=== PATIENT | male | born 1930 | race Asian ===

== ENCOUNTER 2017-01-22 10:28 | Inpatient (IN) | payer MEDICAID, MEDICARE ==
[~2017-01-22] VITALS: Ht 165.1 cm; Wt 81.7 kg
[~2017-01-22 10:28] MED LIST: ALLOPURINOL100 MG PO; ARICEPT5 MG PO; ARTIFICIAL TEAR15 M2 OP; BACLOFEN10 MG PO; BACO TOP; CALCIUM-VIT D PO; CARAFATE1 GM PO; CARDURA8 MG PO; CLARITIN10 MG PO; CLINDAMYCIN300 M1 PO; COLACE100 MG PO; DIOVAN80 MG PO; DULCOLAX10 MG RC; HEP5I SC; HIBICLENS118 ML TOP; IBUPROFEN400 MG PO; IPRATROPIUM BROM3 M2 INH; LAC PO; LEV500PM IV; LYRICA50 M1 PO; MILK OF MA1200 MG/11 PO; NEURONTIN600 MG PO; PEPCID20 MG PO; PLA75 PO; SER25 PO; TYLENOL EXTRA500 M2 PO; ULTRACET1 TAB PO; VITAMIN C500 MG PO
[2017-01-22] MEDS ORDERED: PLA75 PO (10:52)
[2017-01-22] MEDS ORDERED: MUCINEX600 MG PO (10:58)
[2017-01-22] MEDS ORDERED: MOM PO (11:02)
[2017-01-22] MEDS ORDERED: AZITHROMYCIN250 M1 PO (11:10)
[2017-01-22] MEDS ORDERED: DULCOLAX10 M1 RC (11:11)
[2017-01-22] MEDS ORDERED: FLONS (11:12)
[2017-01-22 11:14] LABS: BASOPHIL % 0.1 % (0-2); PLATELET COUNT 191 x10^3mcL (130-400); RED CELL DISTRIBUTION WIDTH 14.3 % (11.5-14.5)
[2017-01-22] MEDS ORDERED: LATANOPROST2.5 ML OU (11:14)
[2017-01-22] MEDS ORDERED: ULTRACET TABLE1 EACH PO (11:14)
[2017-01-22] MEDS ORDERED: ZOC10 PO (11:15)
[2017-01-22] MEDS ORDERED: ALPHAGAN P5 M1 OS (11:16)
[2017-01-22] MEDS ORDERED: PROVENTIL0.09 MG/A1 IH (11:18)
[2017-01-22] MEDS ORDERED: ATRNS6 (11:19)
[2017-01-22] MEDS ORDERED: ARTIFICAL TEARS OU (11:20)
[2017-01-22] MEDS ORDERED: MYVITALIFE1 EACH PO (11:21)
[2017-01-22 11:54] LABS: ALBUMIN 2.8 g/dL (3.4-5.0); ALKALINE PHOSPHATASE 74 U/L (46-116); ALT/SGPT 11 U/L (16-63); BILIRUBIN TOTAL 0.71 mg/dL (0.20-1.00); CARBON DIOXIDE 22.8 mmol/L (21-32); CHLORIDE SERUM 104 mmol/L (98-107); CREATININE SERUM 2.9 mg/dL (0.7-1.3); GLUCOSE SERUM 130 mg/dL (74-106); POTASSIUM SERUM 4.1 mmol/L (3.5-5.1); SODIUM SERUM 138 mmol/L (136-145); TOTAL PROTEIN, SERUM 6.8 g/dL (6.4-8.2)
[2017-01-22 11:55] LABS: CHOLESTEROL 90 mg/dL (<200)
[2017-01-22 12:03] LABS: AST/SGOT 16 U/L (15-37)
[2017-01-22 12:34] LABS: FREE T4 1.16 ng/dL (0.76-1.46); FREE THYROXINE INDEX 2.2 ug/dL (1.4-4.5); T4(THYROXINE) 5.8 ug/dL (4.7-13.3)
[2017-01-22 12:38] LABS: T3 TOTAL 0.4 ng/mL
[2017-01-22 12:57] LABS: microscopic required? YES; urine erythrocyte NEGATIVE (NEGATIVE)
[2017-01-22 13:26] VITALS: BP 112/61
[2017-01-22 13:38] LABS: MAGNESIUM 2.1 mg/dL (1.8-2.4); PHOSPHOROUS 3.9 mg/dL (2.5-4.9)
[2017-01-22 13:40] LABS: CHOLESTEROL/HDL RATIO 3.5
[2017-01-22 18:02] VITALS: BP 119/52
[2017-01-22 21:17] VITALS: BP 125/68
[2017-01-23 05:44] VITALS: BP 153/69
[2017-01-23 06:24] LABS: CALCIUM 7.6 mg/dL (8.5-10.1); CARBON DIOXIDE 22.3 mmol/L (21-32); CHLORIDE SERUM 111 mmol/L (98-107); CREATININE SERUM 2.1 mg/dL (0.7-1.3); GLUCOSE SERUM 97 mg/dL (74-106); MAGNESIUM 2.1 mg/dL (1.8-2.4); PHOSPHOROUS 3.3 mg/dL (2.5-4.9); POTASSIUM SERUM 4.1 mmol/L (3.5-5.1); SODIUM SERUM 143 mmol/L (136-145)
[2017-01-23 06:51] LABS: BASOPHIL % 0.5 % (0-2); PLATELET COUNT 168 x10^3mcL (130-400); RED CELL DISTRIBUTION WIDTH 14.6 % (11.5-14.5)
[2017-01-23 09:18] VITALS: BP 179/86
[2017-01-23 14:06] VITALS: BP 141/68
[2017-01-23 18:24] VITALS: BP 130/57
[2017-01-23 20:00] VITALS: BP 116/52
[2017-01-23 22:06] VITALS: BP 115/51
[2017-01-24] VITALS (10 sets, daily range): BP systolic 93–157; BP diastolic 64–77
[2017-01-24 06:45] LABS: CALCIUM 7.7 mg/dL (8.5-10.1); CARBON DIOXIDE 22.3 mmol/L (21-32); CHLORIDE SERUM 111 mmol/L (98-107); CREATININE SERUM 2.2 mg/dL (0.7-1.3); GLUCOSE SERUM 114 mg/dL (74-106); MAGNESIUM 1.9 mg/dL (1.8-2.4); POTASSIUM SERUM 3.6 mmol/L (3.5-5.1); SODIUM SERUM 146 mmol/L (136-145)
[2017-01-24 09:20] LABS: BASOPHIL % 0 % (0-2); PLATELET COUNT 182 x10^3mcL (130-400); RED CELL DISTRIBUTION WIDTH 14.8 % (11.5-14.5)
[2017-01-25 06:41] VITALS: BP 105/72
[2017-01-25 06:56] LABS: BASOPHIL % 0.4 % (0-2); PLATELET COUNT 182 x10^3mcL (130-400); RED CELL DISTRIBUTION WIDTH 14.4 % (11.5-14.5)
[2017-01-25 07:57] LABS: CARBON DIOXIDE 24.3 mmol/L (21-32); CHLORIDE SERUM 105 mmol/L (98-107); CREATININE SERUM 2.2 mg/dL (0.7-1.3); GLUCOSE SERUM 120 mg/dL (74-106); MAGNESIUM 1.8 mg/dL (1.8-2.4); PHOSPHOROUS 3.3 mg/dL (2.5-4.9); POTASSIUM SERUM 3.3 mmol/L (3.5-5.1); SODIUM SERUM 142 mmol/L (136-145)
[2017-01-25 09:14] VITALS: BP 142/69
[2017-01-25 13:37] VITALS: BP 141/72
[2017-01-25 17:09] VITALS: BP 152/71
[2017-01-25 21:22] VITALS: BP 131/62
[2017-01-26 05:48] VITALS: BP 136/62
[2017-01-26 06:19] LABS: BASOPHIL % 0.1 % (0-2); PLATELET COUNT 172 x10^3mcL (130-400); RED CELL DISTRIBUTION WIDTH 14.2 % (11.5-14.5)
[2017-01-26 06:43] LABS: CALCIUM 8.1 mg/dL (8.5-10.1); CARBON DIOXIDE 21.9 mmol/L (21-32); CHLORIDE SERUM 112 mmol/L (98-107); CREATININE SERUM 2.2 mg/dL (0.7-1.3); GLUCOSE SERUM 174 mg/dL (74-106); PHOSPHOROUS 3.3 mg/dL (2.5-4.9); SODIUM SERUM 146 mmol/L (136-145)
[2017-01-26 10:32] VITALS: BP 129/60
[2017-01-26 13:34] VITALS: BP 125/64
[2017-01-26] MEDS ORDERED: IPRATROPIUM BROM3 M2 HHN ×2 (14:50)
[2017-01-26] MEDS ORDERED: PULMICORT0.5 MG/2 M IH (14:51)
[2017-01-26] MEDS ORDERED: HIBICLENS118 ML TOP (14:57)
[2017-01-26] MEDS ORDERED: BACO TOP (14:57)
[2017-01-26] MEDS ORDERED: LAC PO (15:15)
[2017-01-26] MEDS ORDERED: LEVAQUIN750 MG PO (15:15)
[2017-01-26] MEDS ORDERED: CLINDAMYCIN HC300 MG PO (15:15)
[2017-01-26] MEDS ORDERED: CARDIZEM CD240 MG PO (16:08)
[2017-01-26 17:11] VITALS: BP 141/64
[2017-01-26 17:12] VITALS: BP 141/64
[2017-01-26] MEDS ORDERED: VITAMIN C60 MG (17:16)
== END 2017-01-26 20:10 | DRG 720 ==
LOC: ED 10:28 → DU 11:51
PROVIDERS: Family Medicine; Specialist; ADMIT Family Medicine
DX: A41.9 Sepsis, unspecified organism (principal); J96.01 Acute respiratory failure with hypoxia; I21.4 Non-ST elevation (NSTEMI) myocardial infarction; J69.0 Pneumonitis due to inhalation of food and vomit; N17.0 Acute kidney failure with tubular necrosis; G93.41 Metabolic encephalopathy; E43 Unspecified severe protein-calorie malnutrition; I13.10 Hypertensive heart and chronic kidney disease without heart failure, with stage 1 through stage 4 chronic kidney disease, or unspecified chronic kidney disease; N18.4 Chronic kidney disease, stage 4 (severe); E86.0 Dehydration; I69.354 Hemiplegia and hemiparesis following cerebral infarction affecting left non-dominant side; G30.9 Alzheimer's disease, unspecified; F02.80 Dementia in other diseases classified elsewhere, unspecified severity, without behavioral disturbance, psychotic disturbance, mood disturbance, and anxiety; R65.20 Severe sepsis without septic shock; D50.8 Other iron deficiency anemias; K21.9 Gastro-esophageal reflux disease without esophagitis; M10.9 Gout, unspecified; N40.0 Benign prostatic hyperplasia without lower urinary tract symptoms; E78.5 Hyperlipidemia, unspecified; H26.9 Unspecified cataract; Z68.30 Body mass index [BMI] 30.0-30.9, adult; Z22.322 Carrier or suspected carrier of Methicillin resistant Staphylococcus aureus
CPT/HCPCS: 36600; 83880; 84439; 92526-GN; 92610; 94150; 97110-GP; 97116-GP; 97530-GP; G0480; J0456; J0696; J1644; J1940; J2270; J2543; J2920; J2930; J7030; J7040; J7050; J7620; J7626; Q0092